=== PATIENT | male | born 2000 | race Caucasian/White ===

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

== ENCOUNTER → 2021-07-22 13:06 | Outpatient (BNVA) | payer OTHER, SELFPAY | PROVIDERS: PCP Nurse Practitioner; Visit Provider Nurse Practitioner Family | DX: Z20.822 Contact with and (suspected) exposure to COVID-19 (principal) | CPT/HCPCS: 87635 ==

== ENCOUNTER 2022-04-12 18:43 | Emergency (ER) | payer SELFPAY ==
[2022-04-12 19:01] VITALS: BP 118/62; PULSE 63; RESP 16; TEMP 37; O2SAT 98; BMI 21.7
--- NOTE | 2022-04-12 19:02 | W.ED.LOWEXIN ---
HPI - Extremity Injury (Lower) General: Chief Complaint: Extremity Injury, Lower Stated Complaint: Left Ankle Injury Time Seen by Provider: 04/12/22 19:01 History of Present Illness: Mr. Ruff is a 22-year-old male without significant past medical or surgical history presents to the emergency department due to ankle injury. He was playing basketball approximate 1 hour prior to my evaluation when he rolled his ankle. He immediately had pain and was unable to ambulate. He does note mild tingling intermittently in his foot however he is able to move it. Symptom intensity moderate to severe. Aching sharp in quality. Worse with palpation and movement.. Onset (ago): minute(s) Severity: severe Exacerbating factors: weight bearing, movement and palpation Review of Systems General: Reports: 10 or more systems reviewed and unremarkable except in HPI and below PFSH ED PFSH: Medical History No significant past medical history Surgical History No significant past surgical history Social History Smoking and tobacco status: never smoked Physical Exam Const: COMMON NORMALS: alert GENERAL APPEARANCE: cooperative and well developed HENMT: COMMON NORMALS: normocephalic and atraumatic HEAD & SCALP: normocephalic and atraumatic Eye: COMMON NORMALS: conjunctivae normal CONJUNCTIVA: Yes conjunctivae normal SCLERA: sclerae normal Neck/C-Spine: COMMON NORMALS: supple GENERAL: Yes trachea midline Resp: COMMON NORMALS: normal respiratory effort EFFORT & INSPECTION: Yes able to speak in complete sentences Cardio: COMMON NORMALS: regular rate and regular rhythm RATE: regular rate RHYTHM: regular rhythm GI: COMMON NORMALS: Soft to palpation PALPATION: Yes Soft to palpation and No Tenderness to palpation present (GI) Extremity: NARRATIVE EXTREMITY EXAM: Left ankle with tenderness palpation and lateral deformity with edema. Distal CMS intact. GENERAL: Yes normal exam except as noted and No edema Neuro: COMMON NORMALS: moves all extremities SENSORIUM/ORIENTATION: Yes alert and No Orientation impaired Psych: COMMON NORMALS: mental status grossly normal and Normal thought process present THOUGHT PROCESS: Normal thought process present Course ED course: - Patient was seen and evaluated by me at bedside -Vital signs obtained, IV access obtained - Initial evaluation notable for exam as above with significant lateral edema/deformity appearance -Analgesia ordered - Imaging notable for no acute fracture identified - Upon serial reexamination after treatment the patient was improved - Based on patient history, evaluation, and testing as interpreted the most likely cause of the patient's condition is soft tissue edema likely secondary to ligamentous injury. -Patient placed in Med[place] wrap - The results of ED evaluation were discussed with the patient including prescriptions and/or symptomatic cares (if applicable) including appropriate and responsible use, followup plan, and return precautions. The patient verbalized understanding and felt safe for discharge. - Patient discharged in satisfactory condition. Note: Click bubbles or prepopulated lomas in note writing are used for assistance with data collection and billing and are inherently more limited than narrative and other text portions of this note. Please use narrative for additional clinical history and defer to narrative/free test for any case of contradictory information. If information appears in only free text or click bubble it should be considered present or absent as reported. Please contact note chief underwriter for clarifications of clinical information or contradictory information. MDM is a brief summary, contradictory or erroneous seeming information should be clarified and full note should be reviewed. Vital Signs: Vital signs: Vital Signs Temperature 98.6 F 04/12/22 19:01 Pulse Rate 63 04/12/22 19:52 Respiratory Rate 18 04/12/22 20:11 Blood Pressure 118/62 04/12/22 19:52 Pulse Oximetry 98 04/12/22 19:52 MDM - Extremity Injury (Lower) Medical Decision Making 22-year-old male without significant past medical history presenting to the emergency department after rolling his ankle playing basketball. Significant soft tissue swelling. Patient is thin which in hindsight likely explained appearance of deformity. X-rays negative for acute fracture. Satisfactory for outpatient management. Medical Records I reviewed the patient's medical records. Lab Data I reviewed the patient's lab results. Radiology Impressions Ankle X-Ray 04/12/22 19:11 IMPRESSION: Negative for acute osseous injury. Foot X-Ray 04/12/22 19:11 IMPRESSION: Negative for acute osseous injury. Tibia/Fibula X-Ray 04/12/22 19:11 IMPRESSION: No acute findings. Discharge Plan Discharge Patient Disposition: Home Clinical Impression: Ankle sprain and strain Condition: Stable Prescriptions: New oxycodone 5 mg tablet 5 mg PO Q6H PRN (Reason: pain) Qty: 4 0RF No Action No Known Home Medications 0RF Discharge Orders: Discharge ED (Routine); Ordered 04/12/22 Ordered By: Thierry Howard Patient Instructions: Opioid Safety Activity Restrictions/Additional Instructions: Thank you for visiting the emergency department. You were seen and evaluated for ankle injury. No acute fracture was identified on imaging. Most likely cause of your symptoms is ligamentous strain and sprain. You may use [id number] medications, I suggest scheduling Tylenol and ibuprofen however please do not exceed the daily recommended dosage. Additionally elevation and ice (not directly on skin) is likely to help. I would expect improvement within the next few days though this may be a gradual process. If you do not begin to improve please follow-up with orthopedics. Please return to the emergency department for uncontrolled pain, any new sensory or motor changes, or anything else that you are concerned about and feel needs emergency department evaluation. Coding Level of Care Code ED Cyber Forensics Analyst for John Carranza Exam Comprehensive
--- NOTE | 2022-04-12 19:11 | XRR_ITS ---
PROCEDURE INFORMATION: Exam: XR Left Tibia and Fibula Exam date and time: 04/12/2022 7:31 PM Age: 22 years old Clinical indication: Pain; Lower leg; Left; Additional info: Fall, ankle pain TECHNIQUE: Imaging protocol: XR Left tibia and fibula. Views: 2 views. COMPARISON: No relevant prior studies available. FINDINGS: Bones/joints: Normal. Soft tissues: Normal. XR/XR tibia fibula LT 2V [id number] IMPRESSION: No acute findings.
--- NOTE | 2022-04-12 19:11 | XRR_ITS ---
PROCEDURE INFORMATION: Exam: XR Left Ankle Exam date and time: 04/12/2022 7:31 PM Age: 22 years old Clinical indication: Pain; Ankle; Left; Additional info: Fall, deformity TECHNIQUE: Imaging protocol: XR Left ankle. Views: 3 or more views. COMPARISON: No relevant prior studies available. FINDINGS: Bones/joints: Normal. Soft tissues: Soft tissue swelling laterally. XR/XR ankle LT min 3V* [id number] IMPRESSION: Negative for acute osseous injury.
--- NOTE | 2022-04-12 19:11 | XRR_ITS ---
PROCEDURE INFORMATION: Exam: XR Left Foot Exam date and time: 04/12/2022 7:31 PM Age: 22 years old Clinical indication: Pain; Foot; Left; Additional info: Fall, pain TECHNIQUE: Imaging protocol: XR Left foot. Views: 3 or more views. COMPARISON: No relevant prior studies available. FINDINGS: Bones/joints: Normal. Soft tissues: Lateral side soft tissue swelling. XR/XR foot LT min 3V* [id number] IMPRESSION: Negative for acute osseous injury.
[2022-04-12 19:52] VITALS: BP 118/62; PULSE 63; RESP 16; O2SAT 98
[2022-04-12 20:11] VITALS: RESP 18
[2022-04-12] MEDS: morphine 4 mg/mL SDV 1 mL IVP (20:11)
== END 2022-04-12 20:34 | disposition home or self-care (01) ==
PROVIDERS: Emergency Provider Emergency Medicine
DX: S93.402A Sprain of unspecified ligament of left ankle, initial encounter (principal); S96.912A Strain of unspecified muscle and tendon at ankle and foot level, left foot, initial encounter; X50.1XXA Overexertion from prolonged static or awkward postures, initial encounter; Y93.67 Activity, basketball
CPT/HCPCS: 73590; 73610; 73630; 96374; 99284; J2270

== ENCOUNTER 2024-07-29 21:20 | Emergency (ER) | payer SELFPAY ==
[2024-07-29 21:23] VITALS: BP 156/86; PULSE 88; RESP 20; TEMP 36.6; O2SAT 100; BMI 23.7
--- NOTE | 2024-07-29 21:37 | ED_ITS ---
Documented by User: NIKO Soliz 07/29/24 23:42 HPI - Male Genitourinary 2 General: Chief complaint: Urogenital-Male Stated complaint: having trouble using restroom Time Seen by Provider: 07/29/24 21:27 History of Present Illness: 24-year-old male patient comes in today with difficulty urinating. Patient reports difficulty since Tuesday. Patient reports prior episode when he was in high school. Patient denies any use of medications or alcohol or drugs. Patient had a history of premature . Related Data Previous Rx's Medication Instructions Recorded oxycodone 5 mg tablet 5 mg PO Q6H PRN pain #4 tabs 04/12/22 doxycycline hyclate 100 mg capsule 100 mg PO BID 7 days #14 caps 07/29/24 hydrocodone 5 mg-acetaminophen 325 1 tab PO Q6H PRN pain #10 tabs 07/29/24 mg tablet tamsulosin 0.4 mg capsule 0.4 mg PO DAILY #30 caps 07/29/24 Allergies Allergy/AdvReac Type Severity Reaction Status Date / Time No Known Allergies Allergy Verified 07/29/24 21:25 Review of Systems 2 General: Reports: 10 or more systems reviewed and unremarkable except in HPI and below : Reports: difficulty urinating PFSH ED 2 PFSH: Medical History No significant past medical history Surgical History No significant past surgical history Social History Smoking and tobacco/nicotine status: never used tobacco/nicotine Physical Exam 2 Const: COMMON NORMALS: alert HENMT: COMMON NORMALS: normocephalic HEAD & SCALP: normocephalic Neck/C-Spine: COMMON NORMALS: full ROM Resp: COMMON NORMALS: normal respiratory effort and clear to auscultation bilaterally AUSCULTATION: clear to auscultation bilaterally Cardio: COMMON NORMALS: regular rate RATE: regular rate GI: COMMON NORMALS: Soft to palpation PALPATION: Yes Soft to palpation Back/Pelvis: COMMON NORMALS: thoracic and lumbar spine normal to inspection Extremity: COMMON NORMALS: full ROM Neuro: SENSORIUM/ORIENTATION: Yes alert Skin: COMMON NORMALS: turgor normal GENERAL SKIN EXAM: turgor normal Course 2 Vital Signs: Vital signs: Vital Signs Temperature 98 F 07/29/24 23:47 Pulse Rate 97 07/29/24 23:47 Respiratory Rate 20 H 07/29/24 23:47 Blood Pressure 141/83 07/29/24 23:47 Pulse Oximetry 100 07/29/24 23:47 Oxygen Delivery Me thod Room Air 07/29/24 23:30 MDM - Male Medical Decision Making Patient came in today for difficulty urinating since Tuesday. Patient reports dribbling. Patient appears nontoxic. Patient appears no acute distress. Respirations are even lungs are clear to auscultation. Differential diagnosis includes but not limited to renal calculi, acute urinary retention, STI, prostatitis, adverse drug effect, JACQUELIN. CBC, CMP was unremarkable. Patient's bladder scan did show urine greater than 1000 mL. Patient was given medication for pain, 80 mcg of fentanyl, and bladder catheterization was attempted. We were unable to advance the catheter but after attempt patient was able to urinate 1000 mL. Patient did have a residual [address] of the abdomen pelvis noted some thickening of the bladder wall and a left kidney nonobstructing calyceal stone, and a 4.4 mm calculus in the bladder. Patient was given 1 g of Rocephin and will be continued on doxycycline and tamsulosin. Patient will be referred to urology for further evaluation and treatment. Patient knows to return to the ER for worsening symptoms. Patient and female significant other reported understanding of care plan. Lab Data 07/29/24 21:45 07/29/24 21:45 Radiology Impressions Abdomen/Pelvis CT 07/29/24 21:49 IMPRESSION: 1. Diffuse urinary bladder wall thickening, somewhat asymmetric in the left aspect measuring 15 mm may reflect an infectious process, consider correlation with cystoscopy to assess for possible underlying mass. 2. Left ureterovesical junction 2 urinary bladder region 4.4 mm calculus, negative for hydronephrosis. 3. Right lower lobe atelectasis. 4. Left kidney nonobstructing calyceal stone. Laboratory Results WBC 6.38 10^3/uL (3.29-11.43) 07/29/24 21:45 RBC 5.17 10^6/uL (3.85-5.65) 07/29/24 21:45 Hgb 15.80 g/dL (11.27-16.99) 07/29/24 21:45 Hct 47.1 % (37-53) 07/29/24 21:45 MCV 91.1 fl (82-101) 07/29/24 21:45 MCH 30.6 pg (27-33) 07/29/24 21:45 MCHC 33.5 g/dL (30-55) 07/29/24 21:45 RDW 12.9 % (12.1-15.1) 07/29/24 21:45 Plt Count 204 10^3/cmm (157-399) 07/29/24 21:45 MPV 11.2 fL (7.4-10.4) H 07/29/24 21:45 Neut % (Auto) 79.9 % 07/29/24 21:45 Lymph % (Auto) 16.1 % 07/29/24 21:45 Calhoun % (Auto) 0.9 % 07/29/24 21:45 Eos % (Auto) 2.5 % 07/29/24 21:45 Baso % (Auto) 0.3 % 07/29/24 21:45 Neut # (Auto) 5.09 10^3/uL (1.8-7.7) 07/29/24 21:45 Lymph # (Auto) 1.0 10^3/uL (0.8-4.8) 07/29/24 21:45 Calhoun # (Auto) 0.1 10^3/uL (0.2-0.9) L 07/29/24 21:45 Eos # (Auto) 0.2 10^3/uL (0.0-0.8) 07/29/24 21:45 Baso # (Auto) 0.0 10^3/uL (0.0-0.1) 07/29/24 21:45 Nucleated RBC % (auto) 0 % 07/29/24 21:45 Nucleated RBCs # 0.0 /100WBC 07/29/24 21:45 Sodium 144 mmol/L (136-145) 07/29/24 21:45 Potassium 4.2 mmol/L (3.5-5.1) 07/29/24 21:45 Chloride 106 mmol/L (98-107) 07/29/24 21:45 Carbon Dioxide 24 mmol/L (22-29) 07/29/24 21:45 Anion Gap 18.2 (5-19) 07/29/24 21:45 BUN 20 mg/dL (6-20) 07/29/24 21:45 Creatinine 1.2 mg/dL (0.7-1.2) 07/29/24 21:45 GFR Calculation 75.0 mL/min (90-130) L 07/29/24 21:45 Glucose 93 mg/dL (65-115) 07/29/24 21:45 Calculated Osmolality 300 mOsm/kg (285-295) H 07/29/24 21:45 Calcium 9.2 mg/dL (8.5-10.5) 07/29/24 21:45 Total Bilirubin 1.3 mg/dL (0.15-1.2) H 07/29/24 21:45 AST 76 U/L (0-40) H 07/29/24 21:45 ALT 31 U/L (0-41) 07/29/24 21:45 Alkaline Phosphatase 120 U/L (40-130) 07/29/24 21:45 Total Protein 8.2 g/dL (6.6-8.7) 07/29/24 21:45 Albumin 5.0 g/dL (3.5-5.2) 07/29/24 21:45 Globulin 3.2 g/dL (1.3-4.6) 07/29/24 21:45 Urine Color Yellow (Yellow) 07/29/24 22:17 Urine Appearance Cloudy (CLEAR) A 07/29/24 22:17 Urine pH 8.0 (5-7) A 07/29/24 22:17 Ur Specific Landenberg 1.020 (1.005-1.030) 07/29/24 22:17 Urine Protein 1+ (Negative) A 07/29/24 22:17 Urine Glucose (UA) Negative (Normal) 07/29/24 22:17 Urine Ketones Negative (Negative) 07/29/24 22:17 Urine Blood 3+ (Negative) A 07/29/24 22:17 Urine Nitrate Positive (Negative) A 07/29/24 22:17 Urine Bilirubin Negative (Negative) 07/29/24 22:17 Urine Urobilinogen 1.0 mg/dL (Negative) 07/29/24 22:17 Ur Leukocyte Esterase 2+ (Negative) A 07/29/24 22:17 Urine RBC >100 /hpf (0-2) H 07/29/24 22:17 Urine WBC >100 /hpf (0-5) H 07/29/24 22:17 Ur Squamous Epith Cells 0-5 /hpf (0-5) 07/29/24 22:17 Amorphous Sediment Not Reportable 07/29/24 22:17 Urine Bacteria 4+ /hpf (NONE) H 07/29/24 22:17 Hyaline Casts 0.40 /lpf 07/29/24 22:17 All radiology interpretation(s) finalized by discharge Discharge Plan Discharge Patient Disposition: Home Clinical Impression: Acute retention of urine Urinary tract infection Qualifiers: Urinary tract infection type: acute cystitis Hematuria presence: with hematuria Qualified Code(s): N30.01 - Acute cystitis with hematuria Condition: Stable Prescriptions: New doxycycline hyclate 100 mg capsule 100 mg PO BID 7 Days Qty: 14 0RF tamsulosin 0.4 mg capsule 0.4 mg PO DAILY Qty: 30 0RF hydrocodone-acetaminophen 5-325 mg tablet 1 tab PO Q6H PRN (Reason: pain) Qty: 10 0RF No Action oxycodone 5 mg tablet 5 mg PO Q6H PRN (Reason: pain) Qty: 4 0RF Discharge Orders: Discharge ED (Routine); Ordered 07/29/24 Ordered By: Joseph Costa Discharge Diet: Usual diet Discharge Activity: Increase activity as tolerated Patient Instructions: Urinary Tract Infection in Men (ED) Activity Restrictions/Additional Instructions: Drink plenty of water and fluids. Take antibiotics as directed. Follow-up with urologist for further evaluation and treatment. Return to ED for new concerns or worsening symptoms such as inability to urinate, fever greater than 100.4, inability to hold fluids down. 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[employer] Documented by User: Dario Kumari DO 07/30/24 01:20 HPI - Male Genitourinary 2 General: Chief complaint: Urogenital-Male Stated complaint: having trouble using restroom Time Seen by Provider: 07/29/24 21:27 Related Data Previous Rx's Medication Instructions Recorded oxycodone 5 mg tablet 5 mg PO Q6H PRN pain #4 tabs 04/12/22 doxycycline hyclate 100 mg capsule 100 mg PO BID 7 days #14 caps 07/29/24 hydrocodone 5 mg-acetaminophen 325 1 tab PO Q6H PRN pain #10 tabs 07/29/24 mg tablet tamsulosin 0.4 mg capsule 0.4 mg PO DAILY #30 caps 07/29/24 Allergies Allergy/AdvReac Type Severity Reaction Status Date / Time No Known Allergies Allergy Verified 07/29/24 21:25 PFS ED 2 PFSH: Medical History No significant past medical history Surgical History No significant past surgical history Social History Smoking and tobacco/nicotine status: never used tobacco/nicotine Course 2 Vital Signs: Vital signs: Vital Signs Temperature 98 F 07/29/24 23:47 Pulse Rate 97 07/29/24 23:47 Respiratory Rate 20 H 07/29/24 23:47 Blood Pressure 141/83 07/29/24 23:47 Pulse Oximetry 100 07/29/24 23:47 Oxygen Delivery Me thod Room Air 07/29/24 23:30 MDM - Male Medical Decision Making Patient came in today for difficulty urinating since Tuesday. Patient reports dribbling. Patient appears nontoxic. Patient appears no acute distress. Respirations are even lungs are clear to auscultation. Differential diagnosis includes but not limited to renal calculi, acute urinary retention, STI, prostatitis, adverse drug effect, JACQUELIN. CBC, CMP was unremarkable. Patient's bladder scan did show urine greater than 1000 mL. Patient was given medication for pain, 80 mcg of fentanyl, and bladder catheterization was attempted. We were unable to advance the catheter but after attempt patient was able to urinate 1000 mL. Patient did have a residual [address] of the abdomen pelvis noted some thickening of the bladder wall and a left kidney nonobstructing calyceal stone, and a 4.4 mm calculus in the bladder. Patient was given 1 g of Rocephin and will be continued on doxycycline and tamsulosin. Patient will be referred to urology for further evaluation and treatment. Patient knows to return to the ER for worsening symptoms. Patient and female significant other reported understanding of care plan. This patient was originally seen by NIKO Gilmore.? I agree with his history, evaluation, and treatment. Lab Data 07/29/24 21:45 07/29/24 21:45 Radiology Impressions Abdomen/Pelvis CT 07/29/24 21:49 IMPRESSION: 1. Diffuse urinary bladder wall thickening, somewhat asymmetric in the left aspect measuring 15 mm may reflect an infectious process, consider correlation with cystoscopy to assess for possible underlying mass. 2. Left ureterovesical junction 2 urinary bladder region 4.4 mm calculus, negative for hydronephrosis. 3. Right lower lobe atelectasis. 4. Left kidney nonobstructing calyceal stone. Laboratory Results WBC 6.38 10^3/uL (3.29-11.43) 07/29/24 21:45 RBC 5.17 10^6/uL (3.85-5.65) 07/29/24 21:45 Hgb 15.80 g/dL (11.27-16.99) 07/29/24 21:45 Hct 47.1 % (37-53) 07/29/24 21:45 MCV 91.1 fl (82-101) 07/29/24 21:45 MCH 30.6 pg (27-33) 07/29/24 21:45 MCHC 33.5 g/dL (30-55) 07/29/24 21:45 RDW 12.9 % (12.1-15.1) 07/29/24 21:45 Plt Count 204 10^3/cmm (157-399) 07/29/24 21:45 MPV 11.2 fL (7.4-10.4) H 07/29/24 21:45 Neut % (Auto) 79.9 % 07/29/24 21:45 Lymph % (Auto) 16.1 % 07/29/24 21:45 Calhoun % (Auto) 0.9 % 07/29/24 21:45 Eos % (Auto) 2.5 % 07/29/24 21:45 Baso % (Auto) 0.3 % 07/29/24 21:45 Neut # (Auto) 5.09 10^3/uL (1.8-7.7) 07/29/24 21:45 Lymph # (Auto) 1.0 10^3/uL (0.8-4.8) 07/29/24 21:45 Calhoun # (Auto) 0.1 10^3/uL (0.2-0.9) L 07/29/24 21:45 Eos # (Auto) 0.2 10^3/uL (0.0-0.8) 07/29/24 21:45 Baso # (Auto) 0.0 10^3/uL (0.0-0.1) 07/29/24 21:45 Nucleated RBC % (auto) 0 % 07/29/24 21:45 Nucleated RBCs # 0.0 /100WBC 07/29/24 21:45 Sodium 144 mmol/L (136-145) 07/29/24 21:45 Potassium 4.2 mmol/L (3.5-5.1) 07/29/24 21:45 Chloride 106 mmol/L (98-107) 07/29/24 21:45 Carbon Dioxide 24 mmol/L (22-29) 07/29/24 21:45 Anion Gap 18.2 (5-19) 07/29/24 21:45 BUN 20 mg/dL (6-20) 07/29/24 21:45 Creatinine 1.2 mg/dL (0.7-1.2) 07/29/24 21:45 GFR Calculation 75.0 mL/min (90-130) L 07/29/24 21:45 Glucose 93 mg/dL (65-115) 07/29/24 21:45 Calculated Osmolality 300 mOsm/kg (285-295) H 07/29/24 21:45 Calcium 9.2 mg/dL (8.5-10.5) 07/29/24 21:45 Total Bilirubin 1.3 mg/dL (0.15-1.2) H 07/29/24 21:45 AST 76 U/L (0-40) H 07/29/24 21:45 ALT 31 U/L (0-41) 07/29/24 21:45 Alkaline Phosphatase 120 U/L (40-130) 07/29/24 21:45 Total Protein 8.2 g/dL (6.6-8.7) 07/29/24 21:45 Albumin 5.0 g/dL (3.5-5.2) 07/29/24 21:45 Globulin 3.2 g/dL (1.3-4.6) 07/29/24 21:45 Urine Color Yellow (Yellow) 07/29/24 22:17 Urine Appearance Cloudy (CLEAR) A 07/29/24 22:17 Urine pH 8.0 (5-7) A 07/29/24 22:17 Ur Specific Landenberg 1.020 (1.005-1.030) 07/29/24 22:17 Urine Protein 1+ (Negative) A 07/29/24 22:17 Urine Glucose (UA) Negative (Normal) 07/29/24 22:17 Urine Ketones Negative (Negative) 07/29/24 22:17 Urine Blood 3+ (Negative) A 07/29/24 22:17 Urine Nitrate Positive (Negative) A 07/29/24 22:17 Urine Bilirubin Negative (Negative) 07/29/24 22:17 Urine Urobilinogen 1.0 mg/dL (Negative) 07/29/24 22:17 Ur Leukocyte Esterase 2+ (Negative) A 07/29/24 22:17 Urine RBC >100 /hpf (0-2) H 07/29/24 22:17 Urine WBC >100 /hpf (0-5) H 07/29/24 22:17 Ur Squamous Epith Cells 0-5 /hpf (0-5) 07/29/24 22:17 Amorphous Sediment Not Reportable 07/29/24 22:17 Urine Bacteria 4+ /hpf (NONE) H 07/29/24 22:17 Hyaline Casts 0.40 /lpf 07/29/24 22:17 Discharge Plan Discharge Patient Disposition: Home Clinical Impression: Acute retention of urine Urinary tract infection Qualifiers: Urinary tract infection type: acute cystitis Hematuria presence: with hematuria Qualified Code(s): N30.01 - Acute cystitis with hematuria Condition: Stable Prescriptions: New doxycycline hyclate 100 mg capsule 100 mg PO BID 7 Days Qty: 14 0RF tamsulosin 0.4 mg capsule 0.4 mg PO DAILY Qty: 30 0RF hydrocodone-acetaminophen 5-325 mg tablet 1 tab PO Q6H PRN (Reason: pain) Qty: 10 0RF No Action oxycodone 5 mg tablet 5 mg PO Q6H PRN (Reason: pain) Qty: 4 0RF Discharge Orders: Discharge ED (Routine); Ordered 07/29/24 Ordered By: Joseph Costa Discharge Diet: Usual diet Discharge Activity: Increase activity as tolerated Patient Instructions: Urinary Tract Infection in Men (ED) Activity Restrictions/Additional Instructions: Drink plenty of water and fluids. Take antibiotics as directed. Follow-up with urologist for further evaluation and treatment. Return to ED for new concerns or worsening symptoms such as inability to urinate, fever greater than 100.4, inability to hold fluids down. 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
--- NOTE | 2024-07-29 21:49 | CTR_ITS ---
PROCEDURE INFORMATION: Exam: CT Abdomen And Pelvis Without Contrast Exam date and time: 07/29/2024 10:37 PM Age: 24 years old Clinical indication: Other: Dysuria/urinary retention; Abdominal pain; Patient HX: C/O severe pelvic pain with dysuria and retention. History of gastroschisis. ; Additional info: Dysuria, urinary retention TECHNIQUE: Imaging protocol: Computed tomography of the abdomen and pelvis without contrast. Radiation optimization: All CT scans at this facility use at least one of these dose optimization techniques: automated exposure control; mA and/or kV adjustment per patient size (includes targeted exams where dose is matched to clinical indication); or iterative reconstruction. COMPARISON: CR XR chest 1V [id number] 03/01/2019 9:49 PM RADIATION DOSE METRICS: Total DLP (mGy-cm): 455.22 FINDINGS: Lungs: Right lower lobe atelectasis. Liver: Normal. No mass. Gallbladder and biliary ducts: Normal. No calcified stones. No ductal dilation. Pancreas: Normal. No ductal dilation. Spleen: Normal. No splenomegaly. Adrenal glands: Normal. No mass. Kidneys and ureters: Left ureterovesical junction 2 urinary bladder region 4.4 mm calculus, negative for hydronephrosis. Left kidney nonobstructing calyceal stone. Stomach and bowel: Unremarkable. No obstruction. No mucosal thickening. Appendix: No evidence of appendicitis. Intraperitoneal space: Unremarkable. No free air. No significant fluid collection. Vasculature: Unremarkable. No abdominal aortic aneurysm. Lymph nodes: Unremarkable. No enlarged lymph nodes. Urinary bladder: Diffuse urinary bladder wall thickening, somewhat asymmetric in the left aspect measuring 15 mm may reflect an infectious process, consider correlation with cystoscopy to assess for possible underlying mass. Reproductive: Unremarkable as visualized. Bones/joints: Unremarkable. No acute fracture. Soft tissues: Unremarkable. CT/CT kidney stone [id number] IMPRESSION: 1. Diffuse urinary bladder wall thickening, somewhat asymmetric in the left aspect measuring 15 mm may reflect an infectious process, consider correlation with cystoscopy to assess for possible underlying mass. 2. Left ureterovesical junction 2 urinary bladder region 4.4 mm calculus, negative for hydronephrosis. 3. Right lower lobe atelectasis. 4. Left kidney nonobstructing calyceal stone.
[2024-07-29 21:58] VITALS: RESP 16
[2024-07-29] MEDS: fentaNYL 50 mcg/mL INJ 2mL 80 MCG IVP (21:58)
[2024-07-29 22:01] LABS: Basophils % 0.3 %; Eosinophils # 0.2 10^3/uL (0.0-0.8); Eosinophils % 2.5 %; Hematocrit 47.1 % (37-53); Lymphocytes % 16.1 %; Mean Corpuscular HGB Conc 33.5 g/dL (30-55); Mean Corpuscular Hemoglobin 30.6 pg (27-33); Mean Corpuscular Volume 91.1 fl (82-101); Mean Platelet Volume 11.2 fL (7.4-10.4); Monocytes # 0.1 10^3/uL (0.2-0.9); Monocytes % 0.9 %; Neutrophils # 5.09 10^3/uL (1.8-7.7); Neutrophils % 79.9 %; Nucleated Red Blood Cells % 0 %; Platelet Count 204 10^3/cmm (157-399); Red Blood Count 5.17 10^6/uL (3.85-5.65); Red Cell Distribution Width 12.9 % (12.1-15.1); White Blood Count 6.38 10^3/uL (3.29-11.43)
[2024-07-29] MEDS: lidocaine 2% Urojet 20 mL TOPICAL (22:02)
[2024-07-29 22:10] VITALS: BP 122/56; PULSE 86; RESP 20; O2SAT 100
[2024-07-29 22:24] LABS: Alanine Aminotransferase 31 U/L (0-41); Alkaline Phosphatase 120 U/L (40-130); Anion Gap 18.2 (5-19); Aspartate Amino Transferase 76 U/L (0-40); Blood Urea Nitrogen 20 mg/dL (6-20); Calcium 9.2 mg/dL (8.5-10.5); Carbon Dioxide 24 mmol/L (22-29); Chloride 106 mmol/L (98-107); Globulin 3.2 g/dL (1.3-4.6); Glucose 93 mg/dL (65-115); Osmolality Calculated 300 mOsm/kg (285-295); Potassium 4.2 mmol/L (3.5-5.1); Sodium 144 mmol/L (136-145); Total Bilirubin 1.3 mg/dL (0.15-1.2); Total Protein 8.2 g/dL (6.6-8.7)
[2024-07-29 22:53] VITALS: BP 122/56
[2024-07-29 22:55] LABS: Charge for UA Resulting for Rev
[2024-07-29 22:57] LABS: Bilirubin Urine Negative (Negative); Blood Urine 3+ (Negative); Glucose Urine UA Negative (Normal); Ketones Urine Negative (Negative); Leukocyte Esterase Urine 2+ (Negative); Nitrate Urine Positive (Negative); Protein Urine 1+ (Negative); Urine Appearance Cloudy (CLEAR); Urine Color Yellow (Yellow)
[2024-07-29 23:02] LABS: Bacteria Urine 4+ /hpf; RBC Urine >100 /hpf (0-2); Squamous Epithelial Cell Urine 0-5 /hpf (0-5); WBC Urine >100 /hpf (0-5)
[2024-07-29 23:03] LABS: Add Urine Culture? Yes
[2024-07-29 23:30] VITALS: BP 141/83; PULSE 97; RESP 20; O2SAT 100
[2024-07-29] MEDS: HYDROcodone-acetaminophen 5-325 mg Tablet 1 TAB PO (23:44)
[2024-07-29] MEDS: tamsulosin 0.4 mg Capsule PO (23:45)
[2024-07-29] MEDS: cefTRIAXone 1,000 mg SDV 1000 MG IVP (23:45)
[2024-07-29 23:47] VITALS: BP 141/83; PULSE 97; RESP 20; TEMP 36.6; O2SAT 100
[2024-07-31 15:04] LABS: Chlamydia Trachomatis RNA TMA NOT DETECTED (NOT DETECTED); Neisseria Gonorrhoeae RNA, TMA NOT DETECTED (NOT DETECTED); Trichomonas Vaginalis RNA NOT DETECTED (NOT DETECTED)
--- NOTE | 2024-08-01 07:41 | DCPLANNER ---
Sent Referral to [facility]
== END 2024-07-29 23:50 | disposition home or self-care (01) ==
PROVIDERS: Emergency Provider Nurse Practitioner Family
DX: N30.01 Acute cystitis with hematuria (principal); R33.9 Retention of urine, unspecified
CPT/HCPCS: 51702; 51798; 74176; 80053; 81003; 81015; 85025; 87086; 87491; 87591; 96374; 96375; 99285; J0696; J3010

== ENCOUNTER 2024-12-01 10:21 | Emergency (ER) | payer OTHER, SELFPAY ==
--- NOTE | 2024-12-01 10:26 | XRR_ITS ---
PROCEDURE INFORMATION: Exam: XR Chest Exam date and time: 12/01/2024 11:05 AM Age: 24 years old Clinical indication: Cough and fever; Prior surgery; Surgery date: 6+ months; Surgery type: Right clavicle; Patient HX: Flu like symptoms for three days. PT in nad, respirations even and unlabored. ; Additional info: Fever, cough TECHNIQUE: Imaging protocol: Radiologic exam of the chest. Views: 1 view. COMPARISON: CR XR chest 1V [id number] 03/01/2019 9:49 PM FINDINGS: Lungs: Lungs appear free of acute disease. Pleural spaces: Unremarkable. No pleural effusion. No pneumothorax. Heart/Mediastinum: Unremarkable. No cardiomegaly. Bones/joints: A metal plate is again seen anchored to the right clavicle. No acute findings. XR/XR chest 1V portable [id number] IMPRESSION: No acute findings. No significant change.
[2024-12-01 10:38] VITALS: BP 126/83; PULSE 103; RESP 20; TEMP 37.3; O2SAT 98
[2024-12-01 11:32] LABS: Covid PCR NEGATIVE (Negative); Influenza A POSITIVE (Negative); Influenza B NEGATIVE (Negative)
--- NOTE | 2024-12-01 11:39 | ED_ITS ---
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 This been going on for couple of days now. No chest pain. No abdominal pain. No altered mental status. COVID Results: SARS-CoV-2 RNA (RT-PCR) Not detected (NOT DETECTED) 07/22/21 1 3:06 Nasal/Oral Coronavirus 2019 PCR Positive 10/13/20 13:12 Coronavirus (PCR) Negative (Negative) 12/01/24 10:45 Related Data Previous Rx's Medication Instructions Recorded oxycodone 5 mg tablet 5 mg PO Q6H PRN pain #4 tabs 04/12/22 hydrocodone 5 mg-acetaminophen 325 1 tab PO Q6H PRN pain #10 tabs 07/29/24 mg tablet tamsulosin 0.4 mg capsule 0.4 mg PO DAILY #30 caps 07/29/24 dexamethasone 6 mg tablet 6 mg PO DAILY 5 days #5 tabs 12/01/24 diclofenac sodium 50 mg 50 mg PO BID PRN pain #14 tabs 12/01/24 tablet,delayed release ondansetron 4 mg disintegrating 4 mg PO Q8H PRN nausea and 12/01/24 tablet vomiting #10 tabs oseltamivir 75 mg capsule (Tamiflu) 75 mg PO BID 5 days #10 caps 12/01/24 Allergies Allergy/AdvReac Type Severity Reaction Status Date / Time No Known Allergies Allergy Verified 07/29/24 21:25 Review of Systems Narrative: Constitutional symptoms: Negative except as documented in HPI. Skin symptoms: Negative except as documented in HPI. Eye symptoms: Negative except as documented in HPI. ENMT symptoms: Negative except as documented in HPI. Respiratory symptoms: Negative except as documented in HPI. Cardiovascular symptoms: Negative except as documented in HPI. Gastrointestinal symptoms: Negative except as documented in HPI. Genitourinary symptoms: Negative except as documented in HPI. Musculoskeletal symptoms: Negative except as documented in HPI. Neurologic symptoms: Negative except as documented in HPI. Psychiatric symptoms: Negative except as documented in HPI. Endocrine symptoms: Negative except as documented in HPI. PFS ED PFSH: Medical History No significant past medical history Surgical History No significant past surgical history Social History Smoking and tobacco/nicotine status: never used tobacco/nicotine Physical Exam Narrative: EXAM NARRATIVE: General: Alert, no acute distress. Skin: Warm, dry. Head: Normocephalic, atraumatic. Neck: Supple, trachea midline. Eye: Extraocular movements are intact. Ears, nose, mouth and throat: mucosa moist. Cardiovascular: Regular, Normal peripheral perfusion. Respiratory: Lungs are clear to auscultation, respirations are non-labored, breath sounds are equal, Symmetrical chest wall expansion. Gastrointestinal: Soft, Nontender, Non distended Musculoskeletal: Normal ROM, no deformity. Neurological: Alert and oriented, No focal neurological deficit observed. Psychiatric: Cooperative, appropriate mood & affect. Course Vital Signs: Vital signs: Vital Signs Temperature 99.2 F 12/01/24 10:38 Pulse Rate 91 12/01/24 11:52 Respiratory Rate 20 H 12/01/24 10:38 Blood Pressure 138/89 12/01/24 11:52 Pulse Oximetry 95 12/01/24 11:52 Oxygen Delivery Me thod Room Air 12/01/24 11:51 MDM - COVID Medical Decision Making Chest x-ray: No acute process. No infiltrate. No pneumothorax. This was reviewed and interpreted by myself the emergency room physician. I also reviewed the radiology report. Lab review: Patient is both influenza A and RSV positive. Assessment and plan: Influenza A RSV ?IM Decadron and IM Toradol in the emergency room. - Discharged home - Discussed plan with patient. Answered any questions. - Evaluation and treatment of this problem were appropriate in the emergency setting. Lab Data Radiology Impressions Chest X-Ray 12/01/24 10:26 IMPRESSION: No acute findings. No significant change. Laboratory Results Coronavirus (PCR) Negative (Negative) 12/01/24 10:45 Influenza A (PCR) Positive (Negative) 12/01/24 10:45 Influenza Type B (PCR) Negative (Negative) 12/01/24 10:45 RSV (PCR) Positive (Negative) A 12/01/24 10:45 SARS-CoV-2 RNA (RT-PCR) Not detected (NOT DETECTED) 07/22/21 1 3:06 Nasal/Oral Coronavirus 2019 PCR Positive 10/13/20 13:12 Coronavirus (PCR) Negative (Negative) 12/01/24 10:45 All radiology interpretation(s) finalized by discharge Discharge Plan Discharge Patient Disposition: Home Clinical Impression: Influenza, RSV bronchiolitis Condition: Stable Prescriptions: New dexamethasone 6 mg tablet 6 mg PO DAILY 5 Days Qty: 5 0RF oseltamivir [Tamiflu] 75 mg capsule 75 mg PO BID 5 Days Qty: 10 0RF diclofenac sodium 50 mg tablet,delayed release (DR/EC) 50 mg PO BID PRN (Reason: pain) Qty: 14 0RF ondansetron 4 mg tablet,disintegrating 4 mg PO Q8H PRN (Reason: nausea and vomiting) Qty: 10 0RF No Action oxycodone 5 mg tablet 5 mg PO Q6H PRN (Reason: pain) Qty: 4 0RF tamsulosin 0.4 mg capsule 0.4 mg PO DAILY Qty: 30 0RF hydrocodone-acetaminophen 5-325 mg tablet 1 tab PO Q6H PRN (Reason: pain) Qty: 10 0RF Discharge Orders: Discharge ED (Routine); Ordered 12/01/24 Ordered By: Lashon Epps Discharge Diet: Usual diet Discharge Activity: Increase activity as tolerated Patient Instructions: Influenza (ED), Opioid Safety, Pain Management Activity Restrictions/Additional Instructions: Thank you for choosing [facility] for your healthcare needs today. Please realize this is an emergency room and that we are providing you with a medical screening exam and this may not be complete and all inclusive of all the testing and or work up that you may need to determine your ailment or severity of your illness. You have been screened and evaluated and felt safe for discharge. Health conditions do change or evolve sometimes and as such it is important that you follow up with your Primary Doctor to be re checked, 3-5 days is a general good time frame for follow up. You are always welcome to return to the ED for re assessment if your symptoms are worsening or you have new concerns Coding Level of Care Code ED Floral Artist for John Carranza
[2024-12-01 11:45] LABS: Respiratory Syncytial Virus Ce POSITIVE (Negative)
[2024-12-01 11:51] VITALS: O2SAT 95
[2024-12-01] MEDS: ketorolac 60 mg/2 mL INJ IM (11:51)
[2024-12-01] MEDS: dexamethasone 10 mg/mL INJ IM (11:51)
[2024-12-01 11:52] VITALS: BP 138/89; PULSE 91; O2SAT 95
== END 2024-12-01 12:06 | disposition home or self-care (01) ==
PROVIDERS: Emergency Provider Emergency Medicine
DX: J11.1 Influenza due to unidentified influenza virus with other respiratory manifestations (principal); J21.0 Acute bronchiolitis due to respiratory syncytial virus
CPT/HCPCS: 71045; 87637; 96372; 99284; J1100; J1885

== ENCOUNTER 2025-04-12 20:58 | Emergency (ER) | payer OTHER, SELFPAY ==
[2025-04-12 21:21] VITALS: BP 119/71; PULSE 75; RESP 14; TEMP 36.9; O2SAT 100
--- NOTE | 2025-04-12 21:50 | XRR_ITS ---
PROCEDURE INFORMATION: Exam: XR Right Knee Exam date and time: 04/13/2025 12:21 AM Age: 25 years old Clinical indication: Injury or trauma; Sprain or strain; Patella or knee; Right; Patient felt pop in knee while playing basketball. C/O pain and unable to bear weight. TECHNIQUE: Imaging protocol: Radiologic exam of the right knee. Views: 3 views. COMPARISON: No relevant prior studies available. FINDINGS: Bones/joints: No identified fracture or dislocation. Moderate volume suprapatellar joint effusion. Soft tissues: Normal. XR/XR knee RT 3V* [id number] IMPRESSION: No identified fracture or dislocation. Moderate volume suprapatellar joint effusion. Recommend follow-up MRI for further evaluation.
[2025-04-13] MEDS: ondansetron 4 MG Tablet PO (01:57)
[2025-04-13] MEDS: HYDROcodone-acetaminophen 10-325 mg Tablet 1 TAB PO (01:57)
--- NOTE | 2025-04-13 03:04 | W.ED.EXTPRO ---
HPI - Extremity Problem General: Chief complaint: Extremity Injury, Lower Stated complaint: fall right knee popped pain Time Seen by Provider: 04/13/25 00:34 Source: patient Mode of arrival: ambulatory Limitations: no limitations History of Present Illness: 25-year-old male presents the ER with right knee pain. He was playing basketball when he caught a pass and went to twist and felt a pop in his knee and fell down. He had some immediate pain and has had some swelling. He reports he is unable to bear weight on the knee as it feels unstable and is painful. Related Data Previous Rx's ?Medication ?Instructions ?Recorded tamsulosin 0.4 mg capsule 0.4 mg PO DAILY #30 caps 07/29/24 diclofenac sodium 50 mg 50 mg PO BID PRN pain #14 tabs 12/01/24 tablet,delayed release ondansetron 4 mg disintegrating 4 mg PO Q8H PRN nausea and 12/01/24 tablet vomiting #10 tabs ondansetron 8 mg disintegrating 8 mg PO Q8H PRN nausea and 04/13/25 tablet vomiting 5 days #20 tabs oxycodone-acetaminophen 5 mg-325 1 tab PO Q6H PRN R knee 04/13/25 mg tablet (Percocet) pain/injury 5 days #14 tabs Allergies Allergy/AdvReac Type Severity Reaction Status Date / Time No Known Allergies Allergy Verified 04/12/25 21:24 Review of Systems General: Reports: 10 or more systems reviewed and unremarkable except in HPI and below PFSH ED PFSH: Medical History No significant past medical history Surgical History No significant past surgical history Social History Smoking and tobacco/nicotine status: never used tobacco/nicotine Physical Exam Narrative: EXAM NARRATIVE: Concerning patient's right knee. He has superior anterior medial swelling consistent with suprapatellar effusion. He also has anterior drawer laxity and increased pain with varus stress. He has tenderness over the MCL and LCL. I have concern for ACL and MCL injury based on exam Const: COMMON NORMALS: no acute distress, average body habitus, patient oriented x3, healthy appearing, alert and well nourished GENERAL APPEARANCE: well kempt and well developed HENMT: COMMON NORMALS: normocephalic, atraumatic, external ears normal and moist oral mucous membranes HEAD & SCALP: normocephalic and atraumatic EXTERNAL EAR: Yes external ears normal Eye: COMMON NORMALS: Equal, round and reactive pupils present, EOMs intact bilaterally and conjunctivae normal CONJUNCTIVA: Yes conjunctivae normal PUPIL: Yes Equal, round and reactive pupils present Neck/C-Spine: COMMON NORMALS: full ROM Chest: CHEST: Yes Symmetrical chest wall rise Resp: COMMON NORMALS: normal respiratory effort, No retractions and No use of accessory muscles Cardio: COMMON NORMALS: regular rate and regular rhythm RATE: regular rate RHYTHM: regular rhythm HEART SOUNDS: no murmurs PERIPHERAL PULSES: other (Radial pulses 2+ and symmetric) GI: INSPECTION: No abdominal distension Extremity: COMMON NORMALS: capillary refill normal and no clubbing, cyanosis or edema Neuro: COMMON NORMALS: patient oriented x3 SENSORIUM/ORIENTATION: Yes alert Psych: APPEARANCE: Yes well kempt Skin: COMMON NORMALS: no rashes or lesions noted, no wounds, turgor normal and no jaundice GENERAL SKIN EXAM: no rashes or lesions noted and turgor normal Course Vital Signs: Vital signs: Vital Signs Temperature 98.4 F 04/12/25 21:21 Pulse Rate 75 04/12/25 21:21 Respiratory Rate 14 04/12/25 21:21 Blood Pressure 119/71 04/12/25 21:21 Pulse Oximetry 100 04/12/25 21:21 MDM - Extremity (Nontraumatic) Medical Decision Making X-ray unremarkable. Based on examination there is concern for MCL and ACL injury. Could have other soft tissue injuries as well. This is been reviewed with the patient. He is placed in a knee immobilizer and given pain medication. He has been prescribed pain medication, crutches have also been given as well as Zofran. Patient has been informed to follow-up with orthopedics as soon as possible. Informed of likely need for MRI. Patient expressed understanding. Patient and spouse given opportunity ask questions questions were asked and answered. Medical Records I reviewed the patient's medical records. Lab Data I reviewed the patient's lab results. Radiology Impressions Knee X-Ray 04/12/25 21:50 IMPRESSION: No identified fracture or dislocation. Moderate volume suprapatellar joint effusion. Recommend follow-up MRI for further evaluation. All radiology interpretation(s) finalized by discharge Discharge Plan Discharge Patient Disposition: Home Clinical Impression: Knee pain, right Qualifiers: Chronicity: acute Qualified Code(s): M25.561 - Pain in right knee Condition: Stable Prescriptions: New oxycodone-acetaminophen [Percocet] 5-325 mg tablet 1 tab PO Q6H PRN (Reason: R knee pain/injury) 5 Days Qty: 14 0RF ondansetron 8 mg tablet,disintegrating 8 mg PO Q8H PRN (Reason: nausea and vomiting) 5 Days Qty: 20 0RF Discontinued oxycodone 5 mg tablet 5 mg PO Q6H PRN (Reason: pain) Qty: 4 0RF hydrocodone-acetaminophen 5-325 mg tablet 1 tab PO Q6H PRN (Reason: pain) Qty: 10 0RF No Action tamsulosin 0.4 mg capsule 0.4 mg PO DAILY Qty: 30 0RF diclofenac sodium 50 mg tablet,delayed release (DR/EC) 50 mg PO BID PRN (Reason: pain) Qty: 14 0RF ondansetron 4 mg tablet,disintegrating 4 mg PO Q8H PRN (Reason: nausea and vomiting) Qty: 10 0RF Discharge Orders: Discharge ED (Routine); Ordered 04/13/25 Ordered By: Aayush Bowman Referrals: Aramis Antonio DO [Physician, Orthopedics] Clinical Impression: Knee pain, right Patient Instructions: Knee Pain (ED), Opioid Safety Activity Restrictions/Additional Instructions: As we discussed have concern for soft tissue injury or ligamentous injury of the knee. Please follow-up with orthopedics promptly. Use crutches and knee immobilizer as instructed. Return to the ER with any further problems. Print Language: Bel[place]ian Coding Level of Care Code ED Stained Glass Installer for John Carranza
== END 2025-04-13 03:20 | disposition home or self-care (01) ==
PROVIDERS: Emergency Provider Emergency Medicine
DX: M25.561 Pain in right knee (principal)
CPT/HCPCS: 73562; 99283; J9999; Q0162